=== PATIENT | female | born 1995 | race Caucasian/White ===

== ENCOUNTER 2017-01-15 06:42 | Emergency (ER) | payer OTHER ==
[~2017-01-15] VITALS: Ht 162.6 cm; Wt 60.0 kg
[~2017-01-15 06:42] MED LIST: DOCU-131 PO; FERR324T13 PO; IBUP-1222 PO
[2017-01-15 06:48] VITALS: BP 115/67
[2017-01-15] MEDS ORDERED: SODIUM CHLORIDE FLUSH 10ML SYR IVF ONE (07:30)
[2017-01-15] MEDS ORDERED: SODIUM CHLORIDE 0.9% 1,000ML IVBOLUS ONE (07:30)
[2017-01-15] MEDS ORDERED: ONDANSETRON 2MG/ML, 2ML IVPush ONE (07:30)
[2017-01-15] MEDS ORDERED: ONDANSETRON 2MG/ML, 2ML ONE (07:31)
[2017-01-15 07:33] LABS: HEMATOCRIT 40.4 % (34.6-47.8); HEMOGLOBIN 13.8 g/dL (11.7-16.4); WHITE BLOOD COUNT 12.7 x10^3/uL (4.5-13.2)
[2017-01-15 07:46] LABS: BLOOD UREA NITROGEN 7 mg/dL (7-18)
== END 2017-01-15 09:17 | disposition home or self-care (01) ==
LOC: ED 09:11
DX: R55 Syncope and collapse (principal); S16.1XXA Strain of muscle, fascia and tendon at neck level, initial encounter; F17.210 Nicotine dependence, cigarettes, uncomplicated; F12.10 Cannabis abuse, uncomplicated; F41.1 Generalized anxiety disorder; R51 Headache; R11.0 Nausea; X58.XXXA Exposure to other specified factors, initial encounter; Y93.89 Activity, other specified; Y99.8 Other external cause status; Y92.89 Other specified places as the place of occurrence of the external cause
CPT/HCPCS: 36415; 70450; 72125; 80048; 82040; 84703; 85025; 93005; 96361; 96374; 99285; J2405; J7030

== ENCOUNTER 2017-01-28 09:44 | Emergency (ER) | payer OTHER ==
[~2017-01-28] VITALS: Ht 162.6 cm; Wt 55.0 kg
[2017-01-28 09:53] VITALS: BP 110/70
[2017-01-28] MEDS ORDERED: FAMOTIDINE 20 MG TABLET ONE (10:27)
[2017-01-28] MEDS ORDERED: FAMOTIDINE 20 MG TABLET PO ONE (10:30)
== END 2017-01-28 11:00 | disposition home or self-care (01) ==
LOC: ED 10:40
DX: L50.9 Urticaria, unspecified (principal)
CPT/HCPCS: 99283; J7512

== ENCOUNTER 2017-02-16 21:33 | Emergency (ER) | payer OTHER ==
[~2017-02-16] VITALS: Ht 162.6 cm; Wt 55.7 kg
[2017-02-16] MEDS ORDERED: ONDANSETRON 2MG/ML, 2ML IVPush ONE (22:00)
[2017-02-16] MEDS ORDERED: SODIUM CHLORIDE 0.9% 1,000ML IVBOLUS ONE (22:00)
[2017-02-16] MEDS ORDERED: KETOROLAC 30 MG/1 ML IVPush ONE (22:00)
[2017-02-16 22:19] LABS: BASOPHILS # (AUTO) 0.04 x10^3/uL (0-0.3); BASOPHILS % (AUTO) 1 % (0-1); EOSINOPHILS # (AUTO) 0.34 x10^3/uL (0-0.8); EOSINOPHILS % (AUTO) 6 % (1-7); LYMPHOCYTES % (AUTO) 25 % (22-44); MD NO; MEAN CORPUSCULAR HGB CONC 33.6 g/dL (32.4-35.8); MEAN CORPUSCULAR VOLUME 86.2 fL (80-100); MEAN PLATELET VOLUME 9.9 fL (7.4-10.4); MONOCYTES # (AUTO) 0.72 x10^3/uL (0-1.4); MONOCYTES % (AUTO) 12 % (2-9); NEUTROPHILS # (AUTO) 3.37 x10^3/uL (1.8-8.0); NEUTROPHILS % (AUTO) 56 % (42-75); PLATELET COUNT 199 x10^3/uL (130-400); RED BLOOD COUNT 4.42 x10^6/uL (3.82-5.3); RED CELL DISTRIBUTION WIDTH 12.9 % (9.6-15.2)
[2017-02-16 22:30] LABS: ALBUMIN 3.3 g/dL (3.4-5.0); ANION GAP 6 mmol/L (5-15); CALCIUM 8.7 mg/dL (8.5-10.1); CHLORIDE 109 mmol/L (98-107)
[2017-02-16 22:37] LABS: ALANINE AMINOTRANSFERASE 22 U/L (12-78); ALKALINE PHOSPHATASE 74 U/L (45-117); BILIRUBIN,TOTAL 0.6 mg/dL (0.2-1.0); CREATININE 0.54 mg/dL (0.55-1.02); TOTAL PROTEIN 6.8 g/dL (6.4-8.2)
[2017-02-16 22:46] LABS: HCG UR SG 1.037 (1.003-1.030); MICROSCOPIC INDICATED
[2017-02-16 22:48] LABS: AMPHETAMINE SCREEN, URINE Negative (Negative); BARBITURATE SCREEN, URINE Negative (Negative); BENZODIAZEPINE SCREEN, URINE Negative (Negative); CANNABINOID SCREEN, URINE Positive (Negative); COCAINE SCREEN, URINE Negative (Negative); METHADONE SCREEN, URINE Negative (Negative); OPIATE SCREEN, URINE Negative (Negative)
[2017-02-16] MEDS ORDERED: ONDANSETRON 2MG/ML, 2ML ONE (22:48)
[2017-02-16] MEDS ORDERED: KETOROLAC 30 MG/1 ML ONE (22:48)
[2017-02-16 22:54] LABS: CULTURE INDICATED? NO
[2017-02-16] MEDS ORDERED: LORA10CA PO (22:57)
[2017-02-16 23:29] VITALS: BP 94/54
== END 2017-02-16 23:30 | disposition home or self-care (01) ==
LOC: ED 22:11
DX: G44.219 Episodic tension-type headache, not intractable (principal); R11.2 Nausea with vomiting, unspecified; R10.10 Upper abdominal pain, unspecified
CPT/HCPCS: 36415; 80053; 80307; 81001; 81025; 83690; 85025; 96361; 96374; 96375; 99284; J1885; J2405; J7030; G0479

== ENCOUNTER 2017-02-17 11:35 | Emergency (ER) | payer OTHER ==
[~2017-02-17] VITALS: Ht 162.6 cm; Wt 52.0 kg
[~2017-02-17 11:35] MED LIST changes: +LORA10CA PO
[2017-02-17 13:04] LABS: MEAN CORPUSCULAR HEMOGLOBIN 28.6 pg (27.0-34.8); MEAN CORPUSCULAR HGB CONC 33.4 g/dL (32.4-35.8); MEAN CORPUSCULAR VOLUME 85.7 fL (80-100); MEAN PLATELET VOLUME 9.7 fL (7.4-10.4); PLATELET COUNT 201 x10^3/uL (130-400); RED BLOOD COUNT 4.58 x10^6/uL (3.82-5.3); RED CELL DISTRIBUTION WIDTH 12.9 % (9.6-15.2)
[2017-02-17 13:11] LABS: ALBUMIN 3.3 g/dL (3.4-5.0); ANION GAP 7 mmol/L (5-15); CALCIUM 8.3 mg/dL (8.5-10.1); CHLORIDE 109 mmol/L (98-107); CREATININE 0.51 mg/dL (0.55-1.02)
[2017-02-17 13:29] LABS: BASOPHILS # (AUTO) 0.02 x10^3/uL (0-0.3); BASOPHILS % (AUTO) 0 % (0-1); EOSINOPHILS # (AUTO) 0.16 x10^3/uL (0-0.8); EOSINOPHILS % (AUTO) 2 % (1-7); LYMPHOCYTES % (AUTO) 17 % (22-44); MD SCAN; MONOCYTES # (AUTO) 0.52 x10^3/uL (0-1.4); MONOCYTES % (AUTO) 6 % (2-9); NEUTROPHILS # (AUTO) 6.11 x10^3/uL (1.8-8.0); NEUTROPHILS % (AUTO) 75 % (42-75)
[2017-02-17] MEDS ORDERED: KETOROLAC 30 MG/1 ML ONE (14:26)
[2017-02-17] MEDS ORDERED: HYDROmorphone 2 MG/ML, 1ML ONE (14:26)
[2017-02-17] MEDS ORDERED: SODIUM CHLORIDE 0.9% 1,000ML IVBOLUS ONE (14:30)
[2017-02-17] MEDS ORDERED: KETOROLAC 30 MG/1 ML IVPush ONE (14:30)
[2017-02-17] MEDS ORDERED: HYDROmorphone 1 MG/ML, 1ML IVPush PRN (14:30)
[2017-02-17] MEDS ORDERED: DIAZEPAM 5 MG/ML, 2ML IVPush ONE (14:30)
[2017-02-17] MEDS ORDERED: SODIUM CHLORIDE FLUSH 10ML SYR IVF ONE (14:30)
[2017-02-17 14:36] LABS: MICROSCOPIC AUTO
[2017-02-17 14:48] LABS: CULTURE INDICATED? NO
[2017-02-17 15:49] VITALS: BP 124/80
== END 2017-02-17 15:52 | disposition home or self-care (01) ==
LOC: ED 14:31
DX: G44.229 Chronic tension-type headache, not intractable (principal); R11.2 Nausea with vomiting, unspecified
CPT/HCPCS: 36415; 80048; 81001; 82040; 85025; 96361; 96374; 96375; 99284; J1170; J1885; J3360; J7030

== ENCOUNTER 2017-02-18 11:26 | Emergency (ER) | payer OTHER ==
[~2017-02-18] VITALS: Ht 162.6 cm; Wt 56.7 kg
[2017-02-18] MEDS ORDERED: SODIUM CHLORIDE 0.9% 1,000 ML IV ONE (11:46)
[2017-02-18] MEDS ORDERED: KETOROLAC 30 MG/1 ML IVPush ONE (12:00)
[2017-02-18] MEDS ORDERED: DIPHENHYDRAMINE 50 MG/ML, 1ML IVPush ONE (12:00)
[2017-02-18] MEDS ORDERED: SODIUM CHLORIDE 0.9% 1,000ML IVBOLUS ONE (12:00)
[2017-02-18] MEDS ORDERED: METOCLOPRAMIDE 5 MG/ML, 2ML IVPush ONE (12:00)
[2017-02-18] MEDS ORDERED: DIPHENHYDRAMINE 50 MG/ML, 1ML ONE (13:10)
[2017-02-18] MEDS ORDERED: KETOROLAC 30 MG/1 ML ONE (13:10)
[2017-02-18] MEDS ORDERED: METOCLOPRAMIDE 5 MG/ML, 2ML ONE (13:10)
[2017-02-18 13:28] VITALS: BP 114/70
== END 2017-02-18 14:07 | disposition home or self-care (01) ==
LOC: ED 13:52
DX: G43.001 Migraine without aura, not intractable, with status migrainosus (principal); F41.9 Anxiety disorder, unspecified; Z88.0 Allergy status to penicillin
CPT/HCPCS: 96361; 96374; 96375; 99284; J1200; J1885; J2765; J7030

== ENCOUNTER 2017-02-21 15:56 | Emergency (ER) | payer OTHER ==
[~2017-02-21] VITALS: Ht 162.6 cm; Wt 55.4 kg
[2017-02-21 16:03] VITALS: BP 123/78
== END 2017-02-21 16:42 | disposition home or self-care (01) ==
LOC: ED 16:19
DX: R20.2 Paresthesia of skin (principal)
CPT/HCPCS: 99281

== ENCOUNTER 2017-02-23 00:40 | Emergency (ER) | payer OTHER ==
[~2017-02-23] VITALS: Ht 162.6 cm; Wt 57.0 kg
[2017-02-23 00:42] VITALS: BP 127/89
== END 2017-02-23 02:07 | disposition home or self-care (01) ==
LOC: ED 01:24
DX: S60.221A Contusion of right hand, initial encounter (principal); G89.11 Acute pain due to trauma; X58.XXXA Exposure to other specified factors, initial encounter; Y93.89 Activity, other specified; Y92.89 Other specified places as the place of occurrence of the external cause; Y99.8 Other external cause status
CPT/HCPCS: 99284

== ENCOUNTER 2017-03-07 19:04 | Emergency (ER) | payer OTHER ==
[~2017-03-07] VITALS: Ht 162.6 cm; Wt 56.8 kg
[2017-03-07] MEDS ORDERED: ACETAMINOPHEN 500 MG TABLET ONE (19:51)
[2017-03-07 19:52] LABS: BASOPHILS # (AUTO) 0.01 x10^3/uL (0-0.3); BASOPHILS % (AUTO) 0 % (0-1); EOSINOPHILS # (AUTO) 0.03 x10^3/uL (0-0.8); EOSINOPHILS % (AUTO) 1 % (1-7); LYMPHOCYTES # (AUTO) 1.12 x10^3/uL (1-6.1); LYMPHOCYTES % (AUTO) 18 % (22-44); MD NO; MEAN CORPUSCULAR HEMOGLOBIN 28.5 pg (27.0-34.8); MEAN CORPUSCULAR HGB CONC 33.5 g/dL (32.4-35.8); MEAN PLATELET VOLUME 9.8 fL (7.4-10.4); MONOCYTES % (AUTO) 8 % (2-9); NEUTROPHILS # (AUTO) 4.46 x10^3/uL (1.8-8.0); NEUTROPHILS % (AUTO) 73 % (42-75); PLATELET COUNT 197 x10^3/uL (130-400); RED BLOOD COUNT 4.79 x10^6/uL (3.82-5.3); RED CELL DISTRIBUTION WIDTH 13.8 % (9.6-15.2)
[2017-03-07] MEDS ORDERED: SODIUM CHLORIDE 0.9% 1,000ML IVBOLUS ONE (20:00)
[2017-03-07] MEDS ORDERED: ACETAMINOPHEN 500 MG TABLET PO ONE (20:00)
[2017-03-07 20:01] LABS: ALBUMIN 3.5 g/dL (3.4-5.0); ANION GAP 6 mmol/L (5-15); CHLORIDE 105 mmol/L (98-107)
[2017-03-07 20:25] LABS: RAPID INFLUENZA A Negative (Negative); RAPID INFLUENZA B Negative (Negative)
[2017-03-07 20:26] LABS: MICROSCOPIC AUTO
[2017-03-07 20:28] LABS: CULTURE INDICATED? YES
[2017-03-07 21:00] VITALS: BP 95/50
[2017-03-07] MEDS ORDERED: IBUPROFEN 200 MG TABLET ONE (21:16)
[2017-03-07] MEDS ORDERED: IBUPROFEN 200 MG TABLET PO ONE (21:30)
== END 2017-03-07 21:23 | disposition home or self-care (01) ==
LOC: ED 19:35
DX: N30.90 Cystitis, unspecified without hematuria (principal); J20.9 Acute bronchitis, unspecified
CPT/HCPCS: 36415; 71045; 80048; 81001; 82040; 85025; 87086; 87400; 99285; J7030

== ENCOUNTER 2019-11-23 11:47 | Emergency (ER) | payer MEDICAID, OTHER ==
[~2019-11-23] VITALS: Ht 162.6 cm; Wt 62.9 kg
--- NOTE | 2019-11-23 12:16 | NUR ---
NUCLEAR CHEMISTRY TECHNICIAN: PT AMBULATORY TO ROOM FROM LOBBY
[2019-11-23 13:44] VITALS: BP 116/77
--- NOTE | 2019-11-23 13:44 | NUR ---
Patient/Caregiver given discharge instructions and they have confirmed that they understand the instructions. Patient ambulatory with steady gait.
== END 2019-11-23 13:45 | disposition home or self-care (01) ==
LOC: ED 12:57
DX: R09.81 Nasal congestion (principal); Z20.818 Contact with and (suspected) exposure to other bacterial communicable diseases; G43.909 Migraine, unspecified, not intractable, without status migrainosus; F17.200 Nicotine dependence, unspecified, uncomplicated
CPT/HCPCS: 36415; 87635; 99283

== ENCOUNTER 2019-12-10 14:25 | Emergency (ER) | payer MEDICAID ==
[~2019-12-10] VITALS: Ht 162.6 cm; Wt 63.3 kg
--- NOTE | 2019-12-10 14:52 | NUR ---
INSOLE COVERER: PT TO ROOM FROM ALYSSA WOODSON
[2019-12-10] MEDS ORDERED: LIDOCAINE-MPF 1%, 2ML ONE (14:53)
[2019-12-10] MEDS ORDERED: CEFTRIAXONE 250 MG ONE (14:54)
[2019-12-10] MEDS ORDERED: AZITHROMYCIN 250 MG TABLET ONE (14:54)
[2019-12-10] MEDS ORDERED: AZITHROMYCIN 500 MG TABLET PO ONE (15:00)
[2019-12-10] MEDS ORDERED: CEFTRIAXONE 250 MG IM ONE (15:00)
[2019-12-10 15:01] VITALS: BP 107/74
== END 2019-12-10 15:04 | disposition home or self-care (01) ==
LOC: ED 14:57
DX: A54.02 Gonococcal vulvovaginitis, unspecified (principal); N89.8 Other specified noninflammatory disorders of vagina
CPT/HCPCS: 96372; 99283; J0696

== ENCOUNTER 2019-12-23 13:46 | Emergency (ER) | payer MEDICAID ==
[~2019-12-23] VITALS: Ht 162.6 cm; Wt 62.5 kg
[2019-12-23 14:10] VITALS: BP 115/79
[2019-12-23] MEDS ORDERED: PHENAZOPYRIDINE 200 MG TABLET PO ONE (14:30)
[2019-12-23 14:39] LABS: BASOPHILS % (AUTO) 1 % (0-1); EOSINOPHILS % (AUTO) 5 % (1-7); LYMPHOCYTES % (AUTO) 46 % (22-44); MEAN CORPUSCULAR HEMOGLOBIN 29.4 pg (27.0-34.8); MEAN CORPUSCULAR HGB CONC 33.5 g/dL (32.4-35.8); MEAN PLATELET VOLUME 9.4 fL (7.4-10.4); MONOCYTES % (AUTO) 6 % (2-9); NEUTROPHILS % (AUTO) 43 % (42-75); PLATELET COUNT 250 x10^3/uL (130-400); RED BLOOD COUNT 5.18 x10^6/uL (3.82-5.3); RED CELL DISTRIBUTION WIDTH 12.8 % (9.6-15.2)
[2019-12-23 14:42] LABS: MD NO
[2019-12-23 14:43] LABS: MICROSCOPIC NOT IND
[2019-12-23 14:48] LABS: ALBUMIN 4.1 g/dL (3.4-5.0); ANION GAP 4 mmol/L (5-15); CALCIUM 9.5 mg/dL (8.5-10.1); CHLORIDE 110 mmol/L (98-107)
[2019-12-23 14:57] LABS: ALANINE AMINOTRANSFERASE 27 U/L (12-78); ALKALINE PHOSPHATASE 78 U/L (45-117); BILIRUBIN,TOTAL 0.5 mg/dL (0.2-1.0); CREATININE 0.71 mg/dL (0.55-1.02); TOTAL PROTEIN 7.6 g/dL (6.4-8.2)
--- NOTE | 2019-12-23 15:41 | NUR ---
BOX SHOOK PATCHER: CALLED FOR ROOM, NO ANSWER
--- NOTE | 2019-12-23 15:43 | NUR ---
ROOMS DIRECTOR: PT TO ROOM FROM ALYSSA WOODSON
[2019-12-23] MEDS ORDERED: PHENAZOPYRIDINE 200 MG TABLET ONE (16:00)
--- NOTE | 2019-12-23 16:01 | NUR ---
PATIENT WALKED BACK FROM TRIAGE WITH CHIEF C/O ABD PAIN. PATIENT STATES SHE WAS HERE LAST WEEK AND DIAGNOSED WITH GONERRHEA, WAS TREATED AND TOLD TO COME BACK IN A WEEK TO FOLLOW UP. PATIENT STATES SHE CONTINUES TO HAVE PAIN WITH URINATION, THAT HAS BEEN INCREASING. PATIENT REPORTS SOME CLEAR DISCHARGE FROM VAGINA, BUT STATES "NO SMELL TO DISCHARGE." ERMD AT BEDSIDE TO DISCUSS POC. NO SIGNS OF ACUTE DISTRESS, CALL LIGHT WITHIN REACH.
--- NOTE | 2019-12-23 16:57 | NUR ---
Patient given discharge instructions and prescription and they have confirmed that they understand the instructions. All patient belongings gathered and taken with patient. Patient ambulatory with steady gait from ED.
== END 2019-12-23 16:58 | disposition home or self-care (01) ==
LOC: ED 15:51
DX: R30.0 Dysuria (principal); R10.9 Unspecified abdominal pain; N89.8 Other specified noninflammatory disorders of vagina; Z87.891 Personal history of nicotine dependence
CPT/HCPCS: 36415; 80053; 81003; 84703; 85025; 99283

== ENCOUNTER 2020-02-07 16:33 | Emergency (ER) | payer MEDICAID ==
[~2020-02-07] VITALS: Ht 162.6 cm; Wt 65.8 kg
[2020-02-07 18:24] VITALS: BP 131/75
== END 2020-02-07 19:02 | disposition home or self-care (01) ==
LOC: ED 18:00
DX: K08.89 Other specified disorders of teeth and supporting structures (principal); G43.909 Migraine, unspecified, not intractable, without status migrainosus; Z87.891 Personal history of nicotine dependence
CPT/HCPCS: 99283

== ENCOUNTER 2020-03-21 22:14 | Emergency (ER) | payer MEDICAID ==
[~2020-03-21] VITALS: Ht 162.6 cm; Wt 63.4 kg
--- NOTE | 2020-03-21 22:23 | NUR ---
Pt ambulating to bathroom, equal steady gait.
--- NOTE | 2020-03-21 22:40 | NUR ---
UA sent to lab. Provider performed pelvic exam and collected swabs, walked to lab.
[2020-03-21 22:41] LABS: CLUE CELLS NONE SEEN (NONE SEEN); WET PREP WBCS FEW (FEW)
[2020-03-21] MEDS ORDERED: CEFTRIAXONE 250 MG IM ONE (23:00)
[2020-03-21] MEDS ORDERED: AZITHROMYCIN 500 MG TABLET PO ONE (23:00)
--- NOTE | 2020-03-21 23:00 | NUR ---
Pt's significant other at bedside.
[2020-03-21 23:01] LABS: HCG UR SG 1.021 (1.003-1.030)
[2020-03-21] MEDS ORDERED: AZITHROMYCIN 250 MG TABLET ONE (23:02)
[2020-03-21] MEDS ORDERED: CEFTRIAXONE 250 MG ONE (23:02)
[2020-03-21 23:03] LABS: MICROSCOPIC INDICATED
--- NOTE | 2020-03-22 00:47 | NUR ---
US at bedside.
[2020-03-22 01:56] VITALS: BP 96/60
== END 2020-03-22 01:58 | disposition home or self-care (01) ==
LOC: ED 22:42
DX: O26.891 Other specified pregnancy related conditions, first trimester (principal); A54.9 Gonococcal infection, unspecified; A74.9 Chlamydial infection, unspecified; G43.909 Migraine, unspecified, not intractable, without status migrainosus; Z3A.09 9 weeks gestation of pregnancy
CPT/HCPCS: 36415; 76815; 81001; 81025; 84702; 87086; 87210; 87491; 87591; 87808; 96372; 99284; J0696

== ENCOUNTER 2020-04-20 18:50 | Emergency (ER) | payer MEDICAID ==
[~2020-04-20] VITALS: Ht 162.6 cm; Wt 62.6 kg
--- NOTE | 2020-04-20 20:18 | NUR ---
laundry clerk: pt from lobby to room 18
[2020-04-20] MEDS ORDERED: METOCLOPRAMIDE 5 MG/ML, 2ML IVPush ONE (21:00)
[2020-04-20] MEDS ORDERED: SODIUM CHLORIDE 0.9% 1,000ML IVBOLUS ONE (21:00)
[2020-04-20] MEDS ORDERED: SODIUM CHLORIDE FLUSH 10ML SYR IVF ONE (21:00)
[2020-04-20] MEDS ORDERED: METOCLOPRAMIDE 5 MG/ML, 2ML ONE (21:01)
[2020-04-20 21:25] LABS: MICROSCOPIC INDICATED
[2020-04-20 21:30] LABS: BASOPHILS % (AUTO) 0 % (0-1); EOSINOPHILS % (AUTO) 1 % (1-7); LYMPHOCYTES % (AUTO) 18 % (22-44); MEAN CORPUSCULAR HEMOGLOBIN 29.3 pg (27.0-34.8); MEAN CORPUSCULAR HGB CONC 34.2 g/dL (32.4-35.8); MEAN PLATELET VOLUME 9.6 fL (7.4-10.4); MONOCYTES % (AUTO) 8 % (2-9); NEUTROPHILS % (AUTO) 74 % (42-75); PLATELET COUNT 154 x10^3/uL (130-400); RED BLOOD COUNT 4.64 x10^6/uL (3.82-5.3); RED CELL DISTRIBUTION WIDTH 12.8 % (9.6-15.2)
[2020-04-20 21:37] LABS: MD NO
[2020-04-20 21:42] LABS: ALBUMIN 3.1 g/dL (3.4-5.0); ANION GAP 8 mmol/L (5-15); CALCIUM 8.5 mg/dL (8.5-10.1); CHLORIDE 108 mmol/L (98-107); CREATININE 0.43 mg/dL (0.55-1.02)
[2020-04-20 21:58] VITALS: BP 97/55
--- NOTE | 2020-04-20 21:58 | NUR ---
pt resting on gurney, nad, appears comfortable, SO at bedside, bed in lowest, rails engaged, call light on lap, wctm. pt up for recheck at this time.
--- NOTE | 2020-04-20 22:08 | NUR ---
PatienT given discharge instructions and they have confirmed that they understand the instructions. Patient ambulatory with steady gait. NAD, DENIES ADDITIONAL NEEDS, ALL QUESITONS ANSWERED APPROPRIATELY, NO PERSONAL BELONGINGS LEFT IN ROOM AFTER DC
== END 2020-04-20 22:21 | disposition home or self-care (01) ==
LOC: ED 21:51
DX: O21.0 Mild hyperemesis gravidarum (principal); O26.892 Other specified pregnancy related conditions, second trimester; R10.9 Unspecified abdominal pain; Z3A.15 15 weeks gestation of pregnancy
CPT/HCPCS: 36415; 80048; 81001; 82040; 85025; 87086; 96361; 96374; 99283; J2765; J7030

== ENCOUNTER 2020-06-11 20:10 | Emergency (ER) | payer MEDICAID ==
[~2020-06-11] VITALS: Ht 162.6 cm; Wt 69.9 kg
--- NOTE | 2020-06-11 20:14 | NUR ---
ROLLING MACHINE OPERATOR AUTOMATIC. CALLED L&D SPOKE WITH CHARGE NURSE JACKIE REGARDING PT BEING 24 WEEKS AND PT SYMPTOMS. L&D DECLINED PT ON UNIT "I THINK SHE SHOULD BE EVALUATED IN ER FIRST, WE ARE HAPPY TO COME DOWN AND DO FHT ASSESSMENT NEEDED." ED RESOURCE DIRECTOR AWARE. PT CHECKED IN TO ER.
--- NOTE | 2020-06-11 20:40 | NUR ---
DESK SERGEANT: PER MELISSA DESK SERGEANT IN L&D THEY DO NOT HAVE STAFF TO SEE THIS PT. AND WE CAN NOT SEND PT. UP.
[2020-06-11] MEDS ORDERED: ONDANSETRON 2MG/ML, 2ML IVPush ONE (21:00)
[2020-06-11] MEDS ORDERED: FAMOTIDINE 20 MG/2 ML IVPush ONE (21:00)
[2020-06-11] MEDS ORDERED: SODIUM CHLORIDE 0.9% 1,000ML IVBOLUS ONE (21:00)
[2020-06-11] MEDS ORDERED: ONDANSETRON 2MG/ML, 2ML ONE (21:09)
[2020-06-11] MEDS ORDERED: FAMOTIDINE 20 MG/2 ML ONE (21:10)
[2020-06-11 21:14] LABS: BASOPHILS % (AUTO) 1 % (0-1); EOSINOPHILS % (AUTO) 2 % (1-7); LYMPHOCYTES % (AUTO) 27 % (22-44); MEAN CORPUSCULAR HEMOGLOBIN 30.1 pg (27.0-34.8); MEAN CORPUSCULAR HGB CONC 34.5 g/dL (32.4-35.8); MEAN PLATELET VOLUME 10.3 fL (7.4-10.4); MONOCYTES % (AUTO) 7 % (2-9); NEUTROPHILS % (AUTO) 63 % (42-75); PLATELET COUNT 191 x10^3/uL (130-400); RED CELL DISTRIBUTION WIDTH 14.8 % (9.6-15.2)
--- NOTE | 2020-06-11 21:14 | NUR ---
I WAS UNABLE TO DETECT FHT USING OUR HAND HELD DOPPLER, HOWEVER PT DOES REPORT FEELING MOVEMENT
[2020-06-11 21:16] LABS: MD NO
[2020-06-11 21:23] LABS: ANION GAP 8 mmol/L (5-15); CALCIUM 9.3 mg/dL (8.5-10.1); CHLORIDE 106 mmol/L (98-107); CREATININE 0.49 mg/dL (0.55-1.02)
--- NOTE | 2020-06-11 21:32 | NUR ---
PT AMBULATORY TO THE BR WITH A STEADY GAIT.
[2020-06-11 21:50] LABS: MICROSCOPIC NOT IND
--- NOTE | 2020-06-11 21:55 | NUR ---
PT UPDATED ON POC
--- NOTE | 2020-06-11 22:44 | NUR ---
US AT BEDSIDE.
[2020-06-11 23:33] VITALS: BP 110/80
--- NOTE | 2020-06-11 23:34 | NUR ---
PT DISPO PENDING US RESULTS
== END 2020-06-12 00:25 | disposition home or self-care (01) ==
LOC: ED 21:10
DX: O26.892 Other specified pregnancy related conditions, second trimester (principal); R10.33 Periumbilical pain; R10.31 Right lower quadrant pain; R10.32 Left lower quadrant pain; R11.2 Nausea with vomiting, unspecified; R19.7 Diarrhea, unspecified; R00.0 Tachycardia, unspecified; G43.909 Migraine, unspecified, not intractable, without status migrainosus; Z3A.22 22 weeks gestation of pregnancy
CPT/HCPCS: 36415; 76815; 80048; 81003; 85025; 96361; 96374; 96375; 99284; J2405; J7030

== ENCOUNTER 2020-07-02 17:14 | Outpatient (CLI) | payer MEDICAID ==
[~2020-07-02] VITALS: Ht 162.6 cm; Wt 62.7 kg
[2020-07-02] MEDS ORDERED: PREN1TAB10 PO (17:42)
[2020-07-02 17:58] VITALS: BP 114/64
== END 2020-07-02 17:49 | disposition home or self-care (01) ==
LOC: LDOP 17:14
PROVIDERS: ATTEND Obstetrics & Gynecology
DX: O36.8120 Decreased fetal movements, second trimester, not applicable or unspecified (principal); Z3A.25 25 weeks gestation of pregnancy
CPT/HCPCS: 99211; G0463

== ENCOUNTER 2020-07-02 17:58 | Emergency (ER) | payer MEDICAID ==
[~2020-07-02 17:58] MED LIST changes: +PREN1TAB10 PO
--- NOTE | 2020-07-02 18:14 | NUR ---
NIL x1
--- NOTE | 2020-07-02 18:28 | NUR ---
NIL x 2
--- NOTE | 2020-07-02 19:54 | NUR ---
CALLED FOR PT. PT NOT IN LOBBY
== END 2020-07-02 20:19 | disposition left against medical advice (07) ==
LOC: ED 18:25
DX: K08.89 Other specified disorders of teeth and supporting structures (principal); Z53.21 Procedure and treatment not carried out due to patient leaving prior to being seen by health care provider

== ENCOUNTER 2020-07-04 23:08 | Emergency (ER) | payer MEDICAID ==
[~2020-07-04] VITALS: Ht 162.6 cm; Wt 70.8 kg
[2020-07-04 23:10] VITALS: BP 112/71
--- NOTE | 2020-07-04 23:30 | NUR ---
PT MEDICATED PER EMAR. PT STATES SHE HAS HAD TORADOL BEFORE WO INCIDENT AND IS REQUESTING DC WO OBSERVATION PERIOD. DC EDUCATION PROVIDED, PT DEMONSTRATES UNDERSTANDING. PT AMBULATED STEADILY TO DC WITH RN AND SO
[2020-07-04] MEDS ORDERED: KETOROLAC 30 MG/1 ML ONE (23:49)
[2020-07-05] MEDS ORDERED: KETOROLAC 30 MG/1 ML IVPush ONE
== END 2020-07-05 00:23 | disposition home or self-care (01) ==
LOC: ED 23:40
DX: O99.612 Diseases of the digestive system complicating pregnancy, second trimester (principal); K08.89 Other specified disorders of teeth and supporting structures; H92.02 Otalgia, left ear; F17.200 Nicotine dependence, unspecified, uncomplicated; Z3A.28 28 weeks gestation of pregnancy
CPT/HCPCS: 96374; 99283; J1885

== ENCOUNTER 2020-07-07 18:04 | Emergency (ER) | payer MEDICAID ==
[~2020-07-07] VITALS: Ht 162.6 cm; Wt 71.4 kg
[2020-07-07 18:05] VITALS: BP 108/67
--- NOTE | 2020-07-07 18:33 | NUR ---
ADMITTING OFFICER: PT TO ROOM FROM ALYSSA WOODSON
--- NOTE | 2020-07-07 18:49 | NUR ---
RECEIVED REPORT FROM RAJEEV MANCINI. ASSUMING CARE AT THIS TIME. ERPA AT BEDSIDE FOR ASSESSMENT.
== END 2020-07-07 19:15 | disposition home or self-care (01) ==
LOC: ED 18:38
DX: O26.893 Other specified pregnancy related conditions, third trimester (principal); L03.211 Cellulitis of face; Z3A.28 28 weeks gestation of pregnancy
CPT/HCPCS: 99283

== ENCOUNTER 2020-07-25 17:03 | Outpatient (CLI) | payer MEDICAID ==
[~2020-07-25] VITALS: Ht 162.6 cm; Wt 73.8 kg
[2020-07-25 17:27] VITALS: BP 105/66
[2020-07-25] MEDS ORDERED: LACTATED RINGERS 1,000 ML IVBOLUS ONE (18:30)
[2020-07-25] MEDS ORDERED: BETAMETHASONE 6 MG/ML, 5ML IM ONE (18:30)
[2020-07-25 18:37] LABS: MICROSCOPIC NOT IND
[2020-07-25 18:48] LABS: AMPHETAMINE SCREEN, URINE Negative (Negative); BARBITURATE SCREEN, URINE Negative (Negative); BENZODIAZEPINE SCREEN, URINE Negative (Negative); CANNABINOID SCREEN, URINE Negative (Negative); COCAINE SCREEN, URINE Negative (Negative); METHADONE SCREEN, URINE Negative (Negative); OPIATE SCREEN, URINE Negative (Negative)
== END 2020-07-25 20:47 | disposition home or self-care (01) ==
LOC: LDOP 17:03
PROVIDERS: ATTEND Obstetrics & Gynecology
DX: O26.893 Other specified pregnancy related conditions, third trimester (principal); R10.9 Unspecified abdominal pain; O36.8130 Decreased fetal movements, third trimester, not applicable or unspecified; O62.9 Abnormality of forces of labor, unspecified; Z3A.28 28 weeks gestation of pregnancy
CPT/HCPCS: 59025; 80307; 81003; 96360; 96361; 96372; J0702; J7120

== ENCOUNTER 2020-07-26 18:10 | Outpatient (CLI) | payer MEDICAID ==
[~2020-07-26] VITALS: Ht 162.6 cm; Wt 73.2 kg
[2020-07-26] MEDS ORDERED: BETAMETHASONE 6 MG/ML, 5ML IM ONE (18:30)
== END 2020-07-26 19:47 | disposition home or self-care (01) ==
LOC: LDOP 18:10
PROVIDERS: ATTEND Obstetrics & Gynecology
DX: O36.8130 Decreased fetal movements, third trimester, not applicable or unspecified (principal); O26.893 Other specified pregnancy related conditions, third trimester; O62.9 Abnormality of forces of labor, unspecified; Z3A.28 28 weeks gestation of pregnancy
CPT/HCPCS: 59025; 96372; J0702

== ENCOUNTER → 2020-09-12 | Outpatient (CLI) | payer MEDICAID ==
[2020-09-12 00:53] VITALS: BP 115/60
[2020-09-12 01:31] LABS: MICROSCOPIC NOT IND
[2020-09-12 01:39] LABS: AMPHETAMINE SCREEN, URINE Negative (Negative); BARBITURATE SCREEN, URINE Negative (Negative); BENZODIAZEPINE SCREEN, URINE Negative (Negative); CANNABINOID SCREEN, URINE Negative (Negative); COCAINE SCREEN, URINE Negative (Negative); METHADONE SCREEN, URINE Negative (Negative); OPIATE SCREEN, URINE Negative (Negative)
== END | disposition home or self-care (01) ==
LOC: LDOP 00:49
PROVIDERS: ATTEND Obstetrics & Gynecology
DX: O62.9 Abnormality of forces of labor, unspecified (principal); Z3A.35 35 weeks gestation of pregnancy
CPT/HCPCS: 59025; 80307; 81003; 87086

== ENCOUNTER 2020-09-13 12:23 | Inpatient (IN) | payer MEDICAID ==
[~2020-09-13] VITALS: Ht 162.6 cm; Wt 82.0 kg
[2020-09-13] MEDS ORDERED: D5%-LACTATED RINGERS 1,000 ML IV SCH (14:00)
[2020-09-13] MEDS ORDERED: TERBUTALINE 1 MG/ML, 1ML SQ PRN (14:00)
[2020-09-13] MEDS ORDERED: LACTATED RINGERS 1,000 ML IV SCH (14:00)
[2020-09-13] MEDS ORDERED: OXYTOCIN 30U/ 0.9% NaCL 500ML 500 ML IV ONE (14:00)
[2020-09-13] MEDS ORDERED: ONDANSETRON 2MG/ML, 2ML IVPush PRN (14:00)
[2020-09-13] MEDS ORDERED: METOCLOPRAMIDE 5 MG/ML, 2ML IVPush PRN (14:00)
[2020-09-13] MEDS ORDERED: OXYTOCIN 30U/ 0.9% NaCL 500ML 500 ML IV PRN (14:00)
[2020-09-13] MEDS ORDERED: TERBUTALINE 1 MG/ML, 1ML IVPush PRN (14:00)
[2020-09-13] MEDS ORDERED: SODIUM CITRATE/CITRIC ACID 30 ML UDC PO PRN (14:00)
[2020-09-13] MEDS ORDERED: NEWBORN KIT ONE (14:24)
[2020-09-13] MEDS ORDERED: LIDOCAINE 1%, 20ML ONE (14:24)
[2020-09-13] MEDS ORDERED: MISOPROSTOL 200 MCG TABLET ONE (14:25)
[2020-09-13] MEDS: CLINDAMYCIN PMX 900MG/50ML 50 ML IVPB SCH ×2 (14:29→21:52)
[2020-09-13 14:31] LABS: BASOPHILS % (AUTO) 0 % (0-1); EOSINOPHILS % (AUTO) 1 % (1-7); LYMPHOCYTES % (AUTO) 26 % (22-44); MEAN CORPUSCULAR HEMOGLOBIN 27.9 pg (27.0-34.8); MEAN CORPUSCULAR HGB CONC 33.5 g/dL (32.4-35.8); MONOCYTES % (AUTO) 10 % (2-9); NEUTROPHILS % (AUTO) 63 % (42-75); PLATELET COUNT 192 x10^3/uL (130-400); RED BLOOD COUNT 4.05 x10^6/uL (3.82-5.3); RED CELL DISTRIBUTION WIDTH 14.3 % (9.6-15.2)
[2020-09-13] MEDS ORDERED: SODIUM CITRATE/CITRIC ACID 15 ML UDC ONE (17:56)
[2020-09-13 19:55] VITALS: BP 128/58
[2020-09-14] MEDS: IBUPROFEN 600 MG TABLET PO PRN ×3 (07:00→23:37)
[2020-09-14] MEDS ORDERED: IBUPROFEN 600 MG TABLET ONE (07:05)
[2020-09-14 07:30] VITALS: BP 112/69
[2020-09-14] MEDS: OXYTOCIN 30U/ 0.9% NaCL 500ML 500 ML IV SCH ×3 (07:30→21:46)
[2020-09-14] MEDS ORDERED: SIMETHICONE 80 MG CHEW TAB PO PRN (07:30)
[2020-09-14] MEDS ORDERED: METHYLERGONOVINE 0.2 MG/ML IM PRN (07:30)
[2020-09-14] MEDS ORDERED: OXYcodone/APAP 5/325MG TABLET PO PRN ×2 (07:30)
[2020-09-14] MEDS ORDERED: ONDANSETRON 2MG/ML, 2ML IV PRN (07:30)
[2020-09-14] MEDS: PRENATAL VIT/IRON/FA 1 EACH TABLET PO SCH (09:00)
[2020-09-14 12:25] VITALS: BP 100/66
[2020-09-14 13:26] LABS: BASOPHILS % (AUTO) 0 % (0-1); EOSINOPHILS % (AUTO) 0 % (1-7); LYMPHOCYTES % (AUTO) 16 % (22-44); MEAN CORPUSCULAR HEMOGLOBIN 27.3 pg (27.0-34.8); MEAN CORPUSCULAR HGB CONC 33.3 g/dL (32.4-35.8); MEAN PLATELET VOLUME 9.7 fL (7.4-10.4); MONOCYTES % (AUTO) 9 % (2-9); NEUTROPHILS % (AUTO) 75 % (42-75); PLATELET COUNT 200 x10^3/uL (130-400); RED BLOOD COUNT 3.93 x10^6/uL (3.82-5.3)
[2020-09-14 16:13] VITALS: BP 101/65
[2020-09-14] MEDS: DOCUSATE 100 MG CAPSULE PO PRN (19:24)
[2020-09-14 19:35] VITALS: BP 98/64
[2020-09-15] VITALS: BP 96/61
[2020-09-15 01:00] VITALS: BP 108/69
[2020-09-15 03:07] VITALS: BP 105/71
[2020-09-15] MEDS: PRENATAL VIT/IRON/FA 1 EACH TABLET PO SCH (07:51)
[2020-09-15] MEDS: DOCUSATE 100 MG CAPSULE PO PRN (07:51)
[2020-09-15 08:10] VITALS: BP 106/72
[2020-09-15] MEDS: IBUPROFEN 600 MG TABLET PO PRN (11:42)
[2020-09-15] MEDS ORDERED: DIPH,PERTUSS(ACELL),TET VAC/PF NC IM-VACC ONE ×4 (12:00→14:00)
== END 2020-09-15 15:15 | disposition home or self-care (01) | DRG 807 ==
LOC: LDOP 12:23 → LDIP 13:51 → 2NW 09-14 07:21
PROVIDERS: ADMIT Obstetrics & Gynecology; ATTEND Obstetrics & Gynecology
PROC: 10E0XZZ Delivery of Products of Conception, External Approach (ICD-10-PCS; principal; 2020-09-14)
DX: O42.913 Preterm premature rupture of membranes, unspecified as to length of time between rupture and onset of labor, third trimester (principal); Z37.0 Single live birth; O99.824 Streptococcus B carrier state complicating childbirth; Z20.822 Contact with and (suspected) exposure to COVID-19; Z3A.35 35 weeks gestation of pregnancy; Z88.0 Allergy status to penicillin; Z88.1 Allergy status to other antibiotic agents
CPT/HCPCS: 36415; 84112; 85025; 86592; 86850; 86900; 87635; 90715; G0378; J2590; J7120